=== PATIENT | female | born 1985 | race Caucasian/White ===

== ENCOUNTER 2021-03-09 12:23 | Inpatient (IN) ==
[2021-03-09 12:03] LABS: Basophils # 0.1 K/mcL (0.0-0.2); Basophils % 0.4 %; Eosinophils % 0.1 %; Hematocrit 34.6 % (35.3-44.9); Hemoglobin 12.4 g/dL (11.5-15.4); Immature Granulocytes % 1.5 % (0-4); Lymphocytes # 1.5 K/mcL (0.6-4.6); Lymphocytes % 11.1 %; Mean Corpuscular HGB Conc 35.8 g/dL (31.6-35.5); Mean Corpuscular Hemoglobin 32.2 pg (28.0-33.3); Mean Corpuscular Volume 89.9 fL (83.0-100.0); Mean Platelet Volume 8.5 fL (9.4-12.4); Monocytes # 0.6 K/mcL (0.0-1.3); Monocytes % 4.7 %; Neutrophils # 11.3 K/mcL (1.6-8.9); Platelet Count 332 K/mcL (140-400); Red Blood Count 3.85 M/mcL (3.82-4.97); Red Cell Distribution Width 12.7 % (11.5-14.5); Segmented Neutrophils % 82.2 %; White Blood Count 13.7 K/mcL (4.3-11.1)
[2021-03-09 12:11] LABS: Amphetamine Screen,Urine Negative ng/mL (Cutoff=1000); Barbiturate Screen,Urine Negative ng/mL (Cutoff=200); Benzodiazepines Screen,Urine Negative ng/mL (Cutoff=200); Cannabinoid Screen,Urine Negative ng/mL (Cutoff = 50); Cocaine Screen,Urine Negative ng/mL (Cutoff= 300); Opiate Screen,Urine Negative ng/mL (Cutoff=300); Phencyclidine Screen,Urine Negative ng/mL (Cutoff=25)
[~2021-03-09 12:23] MED LIST: *HR* Nalbuphine 10 MG/ML AMPUL IV PRN; Famotidine 20 MG/2 ML VIAL IVP PRN; Lidocaine 1% 20 ML MDV ID PRN; Metoclopramide 10 MG/2 ML VIAL IVP PRN; Naloxone 0.4 MG/ML INJ IVP PRN; Ondansetron 4 MG/2 ML VIAL IVP PRN; Oxytocin 20 units/ LR 1000 mL 20 UNIT/1,000 ML BAG IVC SCH; Penicillin G Potassium 5,000,000 UNIT in 0.9 % Sodium Chloride Mini Bag 100 ML IVPB ONE; Ringers Solution, Lactated 1,000 ML IVC SCH
[2021-03-09 12:39] LABS: Influenza A PCR Negative (Negative); Influenza B PCR Negative (Negative); Resp. Syncytial Virus PCR Negative (Negative)
[2021-03-09 12:40] LABS: SARS-CoV-2 by PCR (In House) Negative (Negative)
[2021-03-09] MEDS ORDERED: Epidural Premix (fent/bupiv) 110 ML EP ONE (12:48)
[2021-03-09] MEDS ORDERED: *HR* FentaNYL (PF) 100 MCG/2 ML VIAL ONE (12:49)
[2021-03-09] MEDS ORDERED: Ropivacaine/PF 0.2% 20 ML VIAL ONE (12:49)
[2021-03-09] MEDS ORDERED: EPHEDrine 50 MG/ML VIAL IVP PRN (13:14)
[2021-03-09] MEDS: Penicillin G Potassium 2,500,000 UNIT/105 ML MLS IVPB SCH ×2 (16:27→20:23)
[2021-03-09 17:19] LABS: Alanine Aminotransferase 12 Units/L (7-52); Aspartate Amino Transferase 19 Units/L (13-39); BUN/Creatinine Ratio 11 (6-26); Blood Urea Nitrogen 9 mg/dL (6-20); Lactate Dehydrogenase 176 Units/L (140-271); Uric Acid 5.9 mg/dL (2.3-7.6); eGFR For African Americans > 60 (> 60); eGFR For Non-African Americans > 60 (> 60)
[2021-03-09 17:37] LABS: Protein/Creatinine Ratio,Urine 0.18 mg/mg (0.00-0.20)
[2021-03-09] MEDS ORDERED: *HR* Labetalol 20 MG/4 ML SYRINGE IVP PRN ×3 (20:00)
[2021-03-09] MEDS: Epidural Premix (fent/bupiv) 110 ML EP SCH (20:18)
[2021-03-10] MEDS ORDERED: Lidocaine -MPF 2% 5 ML VIAL ONE (04:05)
[2021-03-10] MEDS ORDERED: Ropivacaine/PF 0.2% 20 ML VIAL ONE ×3 (04:06→13:27)
[2021-03-10] MEDS ORDERED: *HR* FentaNYL (PF) 100 MCG/2 ML VIAL ONE ×3 (07:50→16:06)
[2021-03-10] MEDS: Penicillin G Potassium 2,500,000 UNIT/105 ML MLS IVPB SCH ×2 (09:08→13:09)
[2021-03-10] MEDS: Epidural Premix (fent/bupiv) 110 ML EP SCH ×2 (09:08→16:06)
[2021-03-10] MEDS ORDERED: miSOPROStoL 100 MCG TABLET RC ONE (09:28)
[2021-03-10 20:07] LABS: Lymphocytes # 1.3 K/mcL (0.6-4.6); Mean Corpuscular HGB Conc 35.6 g/dL (31.6-35.5); Mean Corpuscular Volume 92.6 fL (83.0-100.0); Mean Platelet Volume 8.5 fL (9.4-12.4); Platelet Count 346 K/mcL (140-400); Red Cell Distribution Width 12.9 % (11.5-14.5); White Blood Count 15.7 K/mcL (4.3-11.1)
[2021-03-10 20:23] LABS: Hemoglobin 8.9 g/dL (11.5-15.4)
[2021-03-10 21:04] LABS: Neutrophils # 14.4 K/mcL (1.6-8.9); Platelet Estimate Normal (Normal)
[2021-03-10] MEDS ORDERED: Rho Immune Globulin 1,500 UNIT SYRINGE IM PRN (22:46)
[2021-03-10] MEDS ORDERED: Oxytocin 20 units/ LR 1000 mL 20 UNIT/1,000 ML BAG IVC ONE (22:46)
[2021-03-10] MEDS ORDERED: Ondansetron ODT 4 MG TAB.RAPDIS SL PRN (22:46)
[2021-03-10] MEDS ORDERED: Measles/Mumps/Rubella Vacc 0.5 ML VIAL SQ PRN (22:46)
[2021-03-10] MEDS ORDERED: Lanolin 7 G OINT...G. TP PRN (22:46)
[2021-03-10] MEDS ORDERED: Benzocaine/Menthol 56 GM AEROSOL SPRAY TP PRN (22:46)
[2021-03-10] MEDS ORDERED: Oxytocin 20 units/ LR 1000 mL 20 UNIT/1,000 ML BAG IVC SCH (22:46)
[2021-03-10] MEDS: Ibuprofen 600 MG TABLET PO SCH (23:42)
[2021-03-10] MEDS: Acetaminophen 325 MG TABLET PO SCH (23:43)
[2021-03-11] MEDS: Acetaminophen 325 MG TABLET PO SCH ×2 (04:53→11:53)
[2021-03-11] MEDS: Ibuprofen 600 MG TABLET PO SCH ×3 (05:48→17:59)
[2021-03-11 08:41] LABS: Hematocrit 18.6 % (35.3-44.9); Mean Corpuscular HGB Conc 36.6 g/dL (31.6-35.5); Mean Corpuscular Hemoglobin 32.9 pg (28.0-33.3); Mean Corpuscular Volume 89.9 fL (83.0-100.0); Mean Platelet Volume 8.9 fL (9.4-12.4); Platelet Count 267 K/mcL (140-400); Red Blood Count 2.07 M/mcL (3.82-4.97); Red Cell Distribution Width 12.7 % (11.5-14.5)
[2021-03-11 08:43] LABS: Hemoglobin 6.8 g/dL (11.5-15.4)
[2021-03-11 09:29] LABS: Lymphocytes # 2.8 K/mcL (0.6-4.6); Monocytes # 0.4 K/mcL (0.0-1.3); Neutrophils # 16.6 K/mcL (1.6-8.9)
[2021-03-11 09:30] LABS: Platelet Estimate Normal (Normal)
[2021-03-11] MEDS: Prenatal Vit/FA 1 EACH TABLET PO SCH (09:32)
[2021-03-12] MEDS: Ibuprofen 600 MG TABLET PO SCH ×4 (00:02→20:20)
[2021-03-12 04:09] LABS: Mean Corpuscular Hemoglobin 32.6 pg (28.0-33.3); Mean Platelet Volume 8.6 fL (9.4-12.4)
[2021-03-12 04:11] LABS: Hematocrit 16.1 % (35.3-44.9); Mean Corpuscular HGB Conc 35.4 g/dL (31.6-35.5); Platelet Count 240 K/mcL (140-400); Red Blood Count 1.75 M/mcL (3.82-4.97); Red Cell Distribution Width 12.8 % (11.5-14.5); White Blood Count 17.4 K/mcL (4.3-11.1)
[2021-03-12 04:18] LABS: Hemoglobin 5.7 g/dL (11.5-15.4)
[2021-03-12 04:43] LABS: Eosinophils # 0.7 K/mcL (0.0-0.6); Lymphocytes # 2.8 K/mcL (0.6-4.6); Monocytes # 0.7 K/mcL (0.0-1.3); Neutrophils # 12.9 K/mcL (1.6-8.9); Platelet Estimate Normal (Normal)
[2021-03-12] MEDS: Acetaminophen 325 MG TABLET PO SCH ×2 (08:30→16:38)
[2021-03-12] MEDS: Prenatal Vit/FA 1 EACH TABLET PO SCH (08:33)
[2021-03-12] MEDS ORDERED: 0.9 % Sodium Chloride 500 ML ONE (09:48)
[2021-03-12 20:38] VITALS: O2SAT 97
[2021-03-12 21:14] VITALS: BP 141/100; PULSE 75; TEMP 97.9
[2021-03-12 22:24] LABS: Basophils # 0.1 K/mcL (0.0-0.2); Basophils % 0.8 %; Eosinophils # 0.2 K/mcL (0.0-0.6); Eosinophils % 1.4 %; Hematocrit 25.4 % (35.3-44.9); Immature Granulocytes % 10.8 % (0-4); Lymphocytes # 3.7 K/mcL (0.6-4.6); Lymphocytes % 21.9 %; Mean Corpuscular HGB Conc 35.4 g/dL (31.6-35.5); Mean Corpuscular Hemoglobin 31.5 pg (28.0-33.3); Mean Corpuscular Volume 88.8 fL (83.0-100.0); Mean Platelet Volume 8.4 fL (9.4-12.4); Monocytes # 0.9 K/mcL (0.0-1.3); Monocytes % 5.2 %; Nucleated Red Blood Cells 0.2 /100 WBC (0); Platelet Count 323 K/mcL (140-400); Red Blood Count 2.86 M/mcL (3.82-4.97); Red Cell Distribution Width 14.1 % (11.5-14.5); Segmented Neutrophils % 59.9 %; White Blood Count 16.7 K/mcL (4.3-11.1)
[2021-03-12 22:55] LABS: Alanine Aminotransferase 17 Units/L (7-52); Aspartate Amino Transferase 35 Units/L (13-39); BUN/Creatinine Ratio 11 (6-26); Blood Urea Nitrogen 8 mg/dL (6-20); Lactate Dehydrogenase 220 Units/L (140-271); Uric Acid 4.2 mg/dL (2.3-7.6); eGFR For African Americans > 60 (> 60); eGFR For Non-African Americans > 60 (> 60)
== END 2021-03-12 22:30 | disposition left against medical advice (07) | DRG 768 ==
LOC: 1NENULAB → 1NENUOBS 03-10 22:46
PROVIDERS: ADMIT Advanced Practice Midwife; ATTEND Advanced Practice Midwife